=== PATIENT | male | born 1985 | race Caucasian/White ===

== ENCOUNTER 2023-09-09 18:17 | Emergency (ER) | payer SELFPAY ==
[2023-09-09 19:24] VITALS: BP 167/112; PULSE 97; RESP 18; TEMP 98.4
--- NOTE | 2023-09-09 19:40 | ED ---
General Adult HPI - General Chief complaint: Recheck/Abnormal Lab/Rx Stated complaint: [facility] Post accident testing Time Seen by Provider: 09/09/23 18:48 Source: patient Mode of arrival: ambulatory Limitations: no limitations - History of Present Illness Initial comments: Dictation was produced using [employer] dictation software. please excuse any grammatical, word or spelling errors. Chief Complaint: 38-year-old male presents emergency department for [facility] evaluation History of Present Illness: Patient 38-year-old male presents emergency department for a chest evaluation. 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 Per protocol patient went to [facility] to be evaluated. He was told to come to the ER for testing and evaluation. Patient has no complaints. Patient was not injured during the event The ROS documented in this emergency department record has been reviewed and confirmed by me. Those systems with pertinent positive or negative responses have been documented in the HPI. All other systems are other negative and/or noncontributory. - Related Data Allergies Allergy/AdvReac Type Severity Reaction Status Date / Time No Known Allergies Allergy Verified 09/09/23 18:38 Review of Systems ROS Statement: Those systems with pertinent positive or pertinent negative responses have been documented in the HPI. ROS Other: All systems not noted in ROS Statement are negative. Past Medical History Past Medical History: Hypertension History of Any Multi-Drug Resistant Organisms: None Reported Past Surgical History: Orthopedic Surgery Smoking Status: Current every day smoker Past Alcohol Use History: None Reported, Occasional Past Drug Use History: Marijuana General Exam - General Exam Comments Initial Comments: PHYSICAL EXAM: General Impression: Alert and oriented x3, not in acute distress HEENT: Normocephalic atraumatic, extra-ocular movements intact, pupils equal and reactive to light bilaterally, mucous membranes moist. Cardiovascular: Heart regular rate and rhythm Chest: Able to complete full sentences, no retractions, no tachypnea Abdomen: abdomen soft, non-tender, non-distended, no organomegaly Musculoskeletal: Pulses present and equal in all extremities, no peripheral edema Motor: no focal deficits noted Neurological: CN II-XII grossly intact, no focal motor or sensory deficits noted Skin: Intact with no visualized rashes Psych: Normal affect and mood Limitations: no limitations Course Vital Signs 09/09/23 18:35 Temperature 98.4 F Pulse Rate 97 Respiratory 18 Rate Blood Pressure 167/112 O2 Sat by Pulse 100 Oximetry Medical Decision Making - Medical Decision Making Was pt. sent in by a medical professional or institution (FOZIA Stokes, SPLICING TECHNICIAN, urgent care, hospital, or detention...) When possible be specific @ -No Did you speak to anyone other than the patient for history (EMS, parent, family, police, friend...)? What history was obtained from this source @ -No Did you review nursing and triage notes (agree or disagree)? Why? @ -I reviewed and agree with nursing and triage notes Were old charts reviewed (outside hosp., previous admission, EMS record, old EKG, old radiological studies, urgent care reports/EKG's, detention records)? Report findings @ -No old charts were reviewed Differential Diagnosis (chest pain, altered mental status, abdominal pain women, abdominal pain men, vaginal bleeding, musculoskeletal, weakness, fever, dyspnea, syncope, headache, dizziness, GI bleed, back pain, seizure, CVA, palpatations, mental health)? @ -Not applicable EKG interpreted by me (3pts min.). @ -None done X-rays interpreted by me (1pt min.). @ -None done CT interpreted by me (1pt min.). @ -None done U/S interpreted by me (1pt. min.). @ -None done What testing was considered but not performed or refused? (CT, X-rays, U/S, labs)? Why? @ -None What meds were considered but not given or refused? Why? @ -None Did you discuss the management of the patient with other professionals (professionals i.e. FOZIA Stokes, SPLICING TECHNICIAN, lab, RT, psych nurse, social organization professor, train caller, teacher, truant officer, clinical case manager)? Give summary @ -No Was smoking cessation discussed for >3mins.? @ -No Was critical care preformed (if so, how long)? @ -No Were there social determinants of health that impacted care today? How? (Homelessness, low income, unemployed, alcoholism, drug addiction, transportation, low edu. Level, literacy, decrease access to med. care, long term, rehab)? @ -No Was there de-escalation of care discussed even if they declined (Discuss DNR or withdrawal of care, Hospice)? DNR status @ -No What co-morbidities impacted this encounter? (DM, HTN, Smoking, COPD, CAD, Cancer, CVA, ARF, Chemo, Hep., AIDS, mental health diagnosis, sleep apnea, morbid obesity)? @ -None Was patient admitted / discharged? Hospital course, mention meds given and route, prescriptions, significant lab abnormalities, going to OR and other pertinent info. @ -38-year-old male presents emergency department for industrial health evaluation. Vital signs stable. Patient well-appearing. Physical examination is benign. Patient has no complaints. Urine studies sent per [facility] request. Patient discharged. Undiagnosed new problem with uncertain prognosis? @ -No Drug Therapy requiring intensive monitoring for toxicity (Heparin, Nitro, Insulin, Cardizem)? @ -No Were any procedures done? @ -No Diagnosis/symptom? Acute, or Chronic, or Acute on Chronic? Uncomplicated (without systemic symptoms) or Complicated (systemic symptoms)? @ -Industrial health evaluation Side effects of treatment? @ -No Exacerbation, Progression, or Severe Exacerbation? @ -No Poses a threat to life or bodily function? How? (Chest pain, [place], [place], pneumonia, PE, COPD, DKA, ARF, appy, cholecystitis, CVA, Diverticulitis, Homicidal, Suicidal, threat to staff... and all critical care pts) @ -No Disposition Clinical Impression: Work related injury Disposition: HOME SELF-CARE Condition: Good Is patient prescribed a controlled substance at d/c from ED?: No Referrals: None,Stated [Primary Care Provider] - 1-2 days Time of Disposition: 19:40
== END 2023-09-09 19:49 | disposition home or self-care (01) ==
LOC: EC 18:17
DX: Z02.89 Encounter for other administrative examinations (principal); F17.200 Nicotine dependence, unspecified, uncomplicated; F12.90 Cannabis use, unspecified, uncomplicated
CPT/HCPCS: 99283

== ENCOUNTER 2024-04-08 16:01 | Emergency (ER) | payer OTHER ==
[2024-04-08 16:11] VITALS: TEMP 98.8
--- NOTE | 2024-04-08 16:19 | ED ---
Fall HPI - General Chief Complaint: Fall Stated Complaint: Seizure Time Seen by Provider: 04/08/24 16:04 Source: patient, EMS Mode of arrival: EMS - History of Present Illness Initial Comments: This patient is a 38-year-old man who presents to have evaluation after he had a seizure and a fall. Patient states that he was getting ready to leave his home, and was walking to the front door when he must have passed out. Patient was told that it looked like he had a seizure. He was told that his head hit the door jam. He is complaining of pain to the anterior head and nose. Patient denies other injuries, no neck pain, chest, back or abdomen pain. Patient was able to get up and walk after. Denies neurologic symptoms. No history of previous seizures. Patient was a regular drinker and then quit drinking just over 2 days ago now. Patient states last tetanus shot less than 10 years ago MD Complaint: other Onset/Timin -: minutes(s) Fall From: standing When Fall Occurred: just prior to arrival Fall Witnessed: yes, by family Place Fall Occurred: home Loss of Consciousness: yes Prolonged Down Time?: no Symptoms Prior to Fall: none Location: head, face Severity: moderate Quality: aching Associated Symptoms: headache - Related Data Previous Rx's Medication Instructions Recorded Cephalexin [Keflex] 500 mg PO Q6HR #20 cap 04/08/24 chlordiazePOXIDE HCl [Librium] 50 mg PO QID 3 Days #6 capsule 04/08/24 chlordiazePOXIDE HCl [Librium] 50 mg PO TID 3 Days #9 capsule 04/08/24 Allergies Allergy/AdvReac Type Severity Reaction Status Date / Time No Known Allergies Allergy Verified 04/08/24 18:08 Review of Systems ROS Statement: Those systems with pertinent positive or pertinent negative responses have been documented in the HPI. ROS Other: All systems not noted in ROS Statement are negative. Constitutional: Denies: fever, chills, weakness Eyes: Denies: eye pain, vision change ENT: Reports: epistaxis. Denies: hearing loss Respiratory: Denies: cough, dyspnea Cardiovascular: Denies: chest pain, palpitations, edema Gastrointestinal: Denies: abdominal pain, nausea, vomiting, diarrhea Genitourinary: Denies: dysuria, hematuria Musculoskeletal: Denies: back pain Skin: Denies: rash Neurological: Reports: headache. Denies: weakness, numbness, paresthesias, confusion Hematological/Lymphatic: Denies: easy bleeding Past Medical History Past Medical History: Hypertension Additional Past Medical History / Comment(s): ETOH History of Any Multi-Drug Resistant Organisms: None Reported Past Surgical History: Orthopedic Surgery Past Psychological History: Anxiety Smoking Status: Current every day smoker Past Alcohol Use History: None Reported, Occasional Past Drug Use History: Marijuana General Exam Limitations: no limitations General appearance: alert, in no apparent distress Head exam: Present: normocephalic, other (Patient does have abrasion to the forehead with underlying swelling and moderate tenderness. No obvious deformity.) Eye exam: Present: PERRL, EOMI, other (Approximately 1 cm diameter cystic lesion left upper lid.). Absent: scleral icterus, conjunctival injection, nystagmus ENT exam: Present: normal oropharynx, mucous membranes moist, TM's normal bilaterally, other (Nasal swelling and tenderness) Neck exam: Present: normal inspection, full ROM. Absent: tenderness, meningi smus Respiratory exam: Present: normal lung sounds bilaterally. Absent: respiratory distress, wheezes, rales, rhonchi, stridor, chest wall tenderness, accessory muscle use Cardiovascular Exam: Present: regular rate, normal rhythm, normal heart sounds. Absent: systolic murmur, diastolic murmur, rubs, gallop GI/Abdominal exam: Present: soft. Absent: distended, tenderness, guarding, rebound, rigid, mass, pulsatile mass Extremities exam: Present: normal inspection, normal capillary refill. Absent: pedal edema, calf tenderness Back exam: Present: normal inspection. Absent: CVA tenderness (R), CVA tenderness (L) Neurological exam: Present: alert, oriented X3, CN II-XII intact. Absent: motor sensory deficit Skin exam: Present: warm, dry, intact, normal color. Absent: rash Course Vital Signs 04/08/24 04/08/24 04/08/24 16:05 17:37 18:25 Temperature 98.8 F Pulse Rate 100 87 107 H Respiratory 18 18 19 Rate Blood Pressure 110/75 119/68 139/90 O2 Sat by Pulse 96 95 98 Oximetry 04/08/24 04/08/24 20:00 21:21 Temperature 98.8 F Pulse Rate 98 90 Respiratory 16 18 Rate Blood Pressure 124/81 107/56 O2 Sat by Pulse 98 97 Oximetry Procedures - Laceration Laceration #1 Consent Obtained: verbal consent Indication: laceration Site: face Description: stellate Size of Sutures: other (Skin adhesive) Technique: other (Skin adhesive) Patient Tolerated Procedure: well, no complications Medical Decision Making - Medical Decision Making The patient had CT of the facial bones which per my interpretation does show nasal bone fracture. The patient had CT of the brain that is negative for acute cranial fracture, negative for intracranial bleed or mass effect. Was pt. sent in by a medical professional or institution (, PA, PROCUREMENT COORDINATOR, urgent care, hospital, or usp...) When possible be specific @ -[No] Did you speak to anyone other than the patient for history (EMS, parent, family, police, friend...)? What history was obtained from this source @ -[No] Did you review nursing and triage notes (agree or disagree)? Why? @ -[I reviewed and agree with nursing and triage notes] Were old charts reviewed (outside hosp., previous admission, EMS record, old EKG, old radiological studies, urgent care reports/EKG's, usp records)? Report findings @ -[No old charts were reviewed] Differential Diagnosis (chest pain, altered mental status, abdominal pain women, abdominal pain men, vaginal bleeding, weakness, fever, dyspnea, syncope, headache, dizziness, GI bleed, back pain, seizure, CVA, palpatations, mental health, musculoskeletal)? @ -[Differential Seizure: Recurrent seizure disorder, febrile seizure, alcohol withdrawal, stimulants, meningitis, encephalitis, intercranial hemorrhage, intracranial tumor, stroke, eclampsia, thyrotoxicosis, hypocalcemia, hyponatremia, hypernatremia, hypomagnesemia, psychogenic, this is not meant to be an all-inclusive list. ] EKG interpreted by me (3pts min.). @ -[As above] X-rays interpreted by me (1pt min.). @ -[I Interpreted as above CT interpreted by me (1pt min.). @ -[ I interpreted as above U/S interpreted by me (1pt. min.). @ -[None done] What testing was considered but not performed or refused? (CT, X-rays, U/S, labs)? Why? @ -[None] What meds were considered but not given or refused? Why? @ -[None] Did you discuss the management of the patient with other professionals (professionals i.e. , PA, PROCUREMENT COORDINATOR, lab, RT, psych nurse, oncology social work, documentation clerk, teacher, employment officer, supportive employment case manager)? Give summary @ -[No] Was smoking cessation discussed for >3mins.? @ -[No] Was critical care preformed (if so, how long)? @ -[No] Were there social determinants of health that impacted care today? How? (Homelessness, low income, unemployed, alcoholism, drug addiction, transportation, low edu. Level, literacy, decrease access to med. care, detention, rehab)? @ -[No] Was there de-escalation of care discussed even if they declined (Discuss DNR or withdrawal of care, Hospice)? DNR status @ -[No] What co-morbidities impacted this encounter? (DM, HTN, Smoking, COPD, CAD, Cancer, CVA, ARF, Chemo, Hep., AIDS, mental health diagnosis, sleep apnea, morbid obesity)? @ -[None] Was patient admitted / discharged? Hospital course, mention meds given and route, prescriptions, significant lab abnormalities, going to OR and other pertinent info. @ -[Patient is a 38-year-old man presenting to have evaluation after generalized tonic-clonic seizure. The seizure is uncomplicated. The patient has returned to baseline. It does appear that alcohol withdrawal probably has contributed to developing seizure. The patient also had facial laceration to which I applied skin glue without complication. Discussed appropriate further care and follow-up. The patient is given small amount of benzodiazepines to prophylax against further withdrawal symptoms. Discussed the need to stop drinking and patient is in agreement at this point. Undiagnosed new problem with uncertain prognosis? @ -[No] Drug Therapy requiring intensive monitoring for toxicity (Heparin, Nitro, Insuli n, Cardizem)? @ -[No] Were any procedures done? @ -[No] Diagnosis/symptom? @ -[Acute generalized tonic-clonic seizure Alcohol withdrawal Facial laceration Nasal fracture Acute, or Chronic, or Acute on Chronic? @ -[acute Uncomplicated (without systemic symptoms) or Complicated (systemic symptoms)? @ -All withdrawal complicated by generalized tonic-clonic seizure and resulting in facial laceration Side effects of treatment? @ -[No] Exacerbation, Progression, or Severe Exacerbation? @ -[No] Poses a threat to life or bodily function? How? (Chest pain, [place], [place], pneumonia, PE, COPD, DKA, ARF, appy, cholecystitis, CVA, Diverticulitis, Homicidal, Suicidal, threat to staff... and all critical care pts) @ -[low risk All treatments are based on ideal body weight as in ED triage - Lab Data Result diagrams: 04/08/24 17:37 04/08/24 17:37 Lab Results 04/08/24 04/08/24 Range/Units 17:37 17:37 WBC 7.6 (3.8-10.6) k/uL RBC 3.29 L (4.30-5.90) m/uL Hgb 12.2 L (13.0-17.5) gm/dL Hct 35.5 L (39.0-53.0) % MCV 108.0 H (80.0-100.0) fL MCH 37.2 H (25.0-35.0) pg MCHC 34.4 (31.0-37.0) g/dL RDW 12.5 (11.5-15.5) % Plt Count 144 L (150-450) k/uL MPV 8.5 Neutrophils % 82 % Lymphocytes % 10 % Monocytes % 5 % Eosinophils % 1 % Basophils % 0 % Neutrophils # 6.3 (1.3-7.7) k/uL Lymphocytes # 0.8 L (1.0-4.8) k/uL Monocytes # 0.4 (0-1.0) k/uL Eosinophils # 0.0 (0-0.7) k/uL Basophils # 0.0 (0-0.2) k/uL Macrocytosis Moderate Sodium 133 L (137-145) mmol/L Potassium 3.1 L (3.5-5.1) mmol/L Chloride 107 (98-107) mmol/L Carbon Dioxide 27 (22-30) mmol/L Anion Gap -1 mmol/L BUN 8 L (9-20) mg/dL Creatinine 0.67 (0.66-1.25) mg/dL Est GFR (CKD-EPI)AfAm >90 (>60 ml/min/1.73 sqM) Est GFR (CKD-EPI)NonAf >90 (>60 ml/min/1.73 sqM) Glucose 88 (74-99) mg/dL Calcium 8.8 (8.4-10.2) mg/dL Total Bilirubin 0.7 (0.2-1.3) mg/dL AST 65 H (17-59) U/L ALT 66 H (4-49) U/L Alkaline Phosphatase 82 (38-126) U/L Total Protein 5.8 L (6.3-8.2) g/dL Albumin 3.7 (3.5-5.0) g/dL Serum Alcohol <10 mg/dL Disposition Clinical Impression: Seizure, Alcohol withdrawal, Nasal fracture Disposition: HOME SELF-CARE Condition: Good Instructions (If sedation given, give patient instructions): Nasal Fracture (ED), Alcohol Withdrawal (ED), Generalized Tonic Clonic Seizures (ED) Prescriptions: Cephalexin [Keflex] 500 mg PO Q6HR #20 cap chlordiazePOXIDE HCl [Librium] 50 mg PO QID 3 Days #6 capsule chlordiazePOXIDE HCl [Librium] 50 mg PO TID 3 Days #9 capsule Is patient prescribed a controlled substance at d/c from ED?: Yes When asked, does pt state using other controlled substances?: No If prescribed controlled substance>3 days was MAPS reviewed?: Prescribed <3 Days If opioid is for acute pain is fill amount 7 days or less?: Yes If Rx opioid, was Start Talking consent form obtained?: Yes Referrals: None,Stated [Primary Care Provider] - 1-2 days
[2024-04-08] MEDS: MORPHINE SULFATE 4 MG/ML SYRINGE IV STA (16:20)
--- NOTE | 2024-04-08 16:52 | CT ---
EXAMINATION TYPE: CT brain wo con DATE OF EXAM: 04/08/2024 4:40 PM COMPARISON: None available.. CLINICAL INDICATION: Male, 38 years old with history of fall injury, Fall, possible seizure. TECHNIQUE: Brain: Axial CT images of the brain were obtained with coronal and sagittal reformats created and rev iewed. Contrast used: None. Oral contrast used: None. CT DLP: Combined DLP of 1390.4 mGycm, Automated exposure control for dose reduction was used. FINDINGS: Brain: Extra-axial spaces: No abnormal extra-axial fluid collections. Ventricular system: Within normal limits Cerebral parenchyma: No acute intraparenchymal hemorrhage or mass effect. The rubi-white junction is well differentiated. Cerebellum: Unremarkable. Mass effect: No evidence of midline shift. Intracranial vasculature: unremarkable Soft tissues: Possible hematoma/contusion involving the frontal scalp soft tissues, recommend clinica l correlation. Calvarium/osseous structures: No depressed skull fracture. Paranasal sinuses and mastoid air cells: Mild scattered paranasal sinus disease. Visualized orbits: Orbital contents are intact. IMPRESSION: No acute intracranial process. [facility], , 04/08/2024 4:49 PM
--- NOTE | 2024-04-08 16:55 | CT ---
EXAMINATION TYPE: CT facial bones wo con DATE OF EXAM: 04/08/2024 4:40 PM COMPARISON: None.. CLINICAL INDICATION: Male, 38 years old with history of fall injury; [facility], Fall, possible seizure. TECHNIQUE: Multiple unenhanced axial CT images were obtained of the facial bones soft tissue and bone windows. Coronal, axial and sagittal reformatted images were also provided in soft tissue and bone windows and submitted for interpretation. Additional 3-D reformatted images were obtained on a [employer] workstation. . CT DLP: Combined DLP of 1390.4 mGycm, Automated exposure control for dose reduction was used. FINDINGS: Soft tissue gas and edema with minimally depressed bilateral comminuted nasal bone fractures. There i s no additional evidence of fracture, subluxation, dislocation, or significant soft tissue swelling. The orbital contents are unremarkable.The temporal-mandibular joints appear symmetric. The visualized portion of the paranasal sinuses appear clear. Fluid density lesions seen in the right facial soft tissues (series 210 image 18). IMPRESSION: Comminuted and minimally depressed bilateral nasal bone fractures with surrounding soft tissue gas/ed zohaib. No additional acute facial bone fracture identified. [facility], , 04/08/2024 4:52 PM
[2024-04-08 17:57] LABS: Basophils % (A) 0 %; Eosinophils % (A) 1 %; HCT 35.5 % (39.0-53.0); HGB 12.2 gm/dL (13.0-17.5); Lymphocytes # (A) 0.8 k/uL (1.0-4.8); Lymphocytes % (A) 10 %; MCH 37.2 pg (25.0-35.0); MCHC 34.4 g/dL (31.0-37.0); Macrocytosis Moderate; Mean Platelet Volume 8.5; Monocytes # (A) 0.4 k/uL (0-1.0); Monocytes % (A) 5 %; Neutrophils # (A) 6.3 k/uL (1.3-7.7); Neutrophils % (A) 82 %; Platelet Count 144 k/uL (150-450); RBC 3.29 m/uL (4.30-5.90); RDW 12.5 % (11.5-15.5); WBC 7.6 k/uL (3.8-10.6)
[2024-04-08 18:26] LABS: ALT 66 U/L (4-49); AST 65 U/L (17-59); African American GFR (CKD) >90 (>60 ml/min/1.73 sqM); Albumin 3.7 g/dL (3.5-5.0); Alcohol <10 mg/dL; Alkaline Phosphatase 82 U/L (38-126); Anion Gap -1 mmol/L; Blood Urea Nitrogen 8 mg/dL (9-20); Calcium 8.8 mg/dL (8.4-10.2); Carbon Dioxide 27 mmol/L (22-30); Chloride 107 mmol/L (98-107); Glucose 88 mg/dL (74-99); Non-African American GFR(CKD) >90 (>60 ml/min/1.73 sqM); Potassium 3.1 mmol/L (3.5-5.1); Sodium 133 mmol/L (137-145); Total Bilirubin 0.7 mg/dL (0.2-1.3); Total Protein 5.8 g/dL (6.3-8.2)
[2024-04-08] MEDS: POTASSIUM CHLORIDE ER 20 MEQ TAB.ER PO STA (19:37)
[2024-04-08] MEDS: CEPHALEXIN 500 MG CAP PO STA (19:38)
[2024-04-08] MEDS: chlordiazePOXIDE 25 MG CAP PO STA (20:03)
[2024-04-08] MEDS: NICOTINE 14MG/24HR PATCH TRANSDERM STA (20:03)
[2024-04-08] MEDS: HYDROcodone/APAP 7.5-325MG 1 EACH TAB PO ONE (20:06)
[2024-04-08] MEDS: TOPICAL SKIN ADHESIVE 1 EACH AMP TOPICAL ONE (20:27)
[2024-04-08 21:24] VITALS: BP 107/56; PULSE 90; RESP 18
[2024-04-08] MEDS: LORazepam 2 MG/ML INJ IV STA (21:24)
== END 2024-04-08 21:51 | disposition home or self-care (01) ==
LOC: EC 16:01
DX: S02.2XXA Fracture of nasal bones, initial encounter for closed fracture (principal); S01.81XA Laceration without foreign body of other part of head, initial encounter; F10.939 Alcohol use, unspecified with withdrawal, unspecified; R56.9 Unspecified convulsions; W18.30XA Fall on same level, unspecified, initial encounter; Y93.01 Activity, walking, marching and hiking
CPT/HCPCS: 36415; 80053; 85025; 70486; 70450; 99285; 96374; 96375; 12011; G0480; S4990; J2060; J2270; 80320